=== PATIENT | male | born 1950 | race Caucasian/White ===

== ENCOUNTER 2018-01-31 10:21 | Emergency (ER) | payer OTHER ==
[~2018-01-31] VITALS: Ht 190.5 cm; Wt 131.5 kg
[2018-01-31] MEDS ORDERED: NORVASC5 MG (10:33)
[2018-01-31] MEDS ORDERED: METOPROLOL SUCC50 MG (10:33)
[2018-01-31] MEDS ORDERED: CRESTOR5 MG (10:34)
[2018-01-31] MEDS ORDERED: ZETIA10 MG (10:35)
[2018-01-31] MEDS ORDERED: IBUPROFEN800 MG PO (13:50)
== END 2018-01-31 14:29 | disposition home or self-care (01) ==
LOC: ER 10:21
DX: S63.591A Other specified sprain of right wrist, initial encounter (principal); W18.39XA Other fall on same level, initial encounter; Y93.01 Activity, walking, marching and hiking; Y92.520 Airport as the place of occurrence of the external cause; Y99.8 Other external cause status